=== PATIENT | female | born 1980 ===

== ENCOUNTER → 2016-12-09 | Outpatient (CLI) | payer OTHER ==
[~2016-12-09] MED LIST: ASPIRIN 81M81 MG/TA2; EQUALINE PRENATAL; FERROUS GL325 MG/TAB PO; MOTRIN 800800 MG/TAB PO; PERCOCET 325 MG1 TA2 PO
== END ==
LOC: COL.RAD 12:00
DX: D25.9 Leiomyoma of uterus, unspecified (principal); R10.2 Pelvic and perineal pain

== ENCOUNTER 2016-12-24 16:45 | Outpatient (RCR) | payer OTHER | END 2017-02-02 | disposition home or self-care (01) | LOC: WSPT | DX: M53.3 Sacrococcygeal disorders, not elsewhere classified (principal); M54.5 Low back pain; G89.29 Other chronic pain ==

== ENCOUNTER 2017-04-04 15:45 | Outpatient (RCR) | payer OTHER | END 2017-04-08 12:48 | disposition home or self-care (01) | LOC: WSPT 15:45 | DX: S46.812D Strain of other muscles, fascia and tendons at shoulder and upper arm level, left arm, subsequent encounter (principal) | CPT/HCPCS: G0283-GP ==